=== PATIENT | male | born 1950 ===

== ENCOUNTER 2019-01-05 12:03 | Day surgery (SDC) | payer BC ==
[~2019-01-05] VITALS: Ht 172.7 cm; Wt 69.4 kg
[~2019-01-05 12:03] MED LIST: ERGO400 PO; Fish Oil 10001000 MG PO; PANT40 PO
--- NOTE | 2019-01-05 13:05 | NUR ---
01/05/19 1305 Mahamed Babb PT HAS MANY PVS IN PRE OP 3 LEAD EKG. ANESTHESIA, DR GLOVER SHOWN THIS. HE STATES IT WILL BE OK TO PROCEED W/ NURSE SEDATION. DR DANG ALSO NOTIFIED AND OK W/ NURSE SEDATION.
== END 2019-01-05 14:25 | disposition home or self-care (01) ==
LOC: ORSCSDS 12:03
PROVIDERS: Student in an Organized Health Care Education/Training Program
PROC: 0DBN8ZX Excision of Sigmoid Colon, Via Natural or Artificial Opening Endoscopic, Diagnostic (ICD-10-PCS; principal; 2019-01-05 13:15)
PROC: 0DB58ZX Excision of Esophagus, Via Natural or Artificial Opening Endoscopic, Diagnostic (ICD-10-PCS; principal; 2019-01-05 13:15)
PROC: 0DB68ZX Excision of Stomach, Via Natural or Artificial Opening Endoscopic, Diagnostic (ICD-10-PCS; principal; 2019-01-05 13:15)
PROC: 0DBK8ZX Excision of Ascending Colon, Via Natural or Artificial Opening Endoscopic, Diagnostic (ICD-10-PCS; principal; 2019-01-05 13:15)
DX: R13.10 Dysphagia, unspecified (principal); K22.2 Esophageal obstruction; K21.9 Gastro-esophageal reflux disease without esophagitis; Z12.11 Encounter for screening for malignant neoplasm of colon; D12.2 Benign neoplasm of ascending colon; K63.5 Polyp of colon; K57.30 Diverticulosis of large intestine without perforation or abscess without bleeding; K64.8 Other hemorrhoids; Z79.899 Other long term (current) drug therapy
CPT/HCPCS: 88305; J2704; J7120

== ENCOUNTER → 2021-08-11 | Outpatient (CLI) | payer MEDICARE | END | disposition home or self-care (01) | LOC: LAB SHORT 12:39 | DX: L30.8 Other specified dermatitis (principal) | CPT/HCPCS: 88305; 88312 ==

== ENCOUNTER 2024-08-11 13:12 | Day surgery (SDC) | payer MEDICARE ==
[~2024-08-11] VITALS: Ht 172.7 cm; Wt 68.9 kg
[2024-08-11] MEDS ORDERED: TURMERIC ROOT5000 GM (13:50)
[2024-08-11] MEDS ORDERED: Lactated Ringer's 1,000 ML IV ONE ×2 (14:22→14:28)
[2024-08-11] MEDS ORDERED: propofoL 50 ML IV ONE (14:28)
[2024-08-11] MEDS ORDERED: ePHEDrine Sulfate 50 MG/ML 1ML Injection ONE (15:03)
[2024-08-11 16:15] VITALS: BP 102/65
--- NOTE | 2024-08-11 16:15 | NUR ---
08/11/24 1615 Sophie Kirkland PT. DENIES ANY PAIN.
== END 2024-08-11 15:35 | disposition home or self-care (01) ==
LOC: ORSCSDS 13:12
PROVIDERS: Internal Medicine Gastroenterology
PROC: 0DJD8ZZ Inspection of Lower Intestinal Tract, Via Natural or Artificial Opening Endoscopic (ICD-10-PCS; principal; 2024-08-11 14:30)
DX: Z12.11 Encounter for screening for malignant neoplasm of colon (principal); Z86.0101 Personal history of adenomatous and serrated colon polyps; R13.10 Dysphagia, unspecified; K57.30 Diverticulosis of large intestine without perforation or abscess without bleeding; K21.9 Gastro-esophageal reflux disease without esophagitis
CPT/HCPCS: J2704; J7120